=== PATIENT | male | born 1940 | race Caucasian/White ===

== ENCOUNTER 2017-03-01 13:25 | Emergency (ER) | payer OTHER, MEDICARE ==
[~2017-03-01] VITALS: Ht 185.4 cm; Wt 96.2 kg
[~2017-03-01 13:25] MED LIST: AMLODIPINE BESY10 MG PO; ASPIR-LOW81 MG PO; ATORVASTATIN CA40 MG PO; FERROUS SULFAT325 MG PO; HUMALOG100 UNIT/1 SC; LANTUS 10100 UNITS/ SC; LEVEMIR100 UNIT/2 SC; LOSARTAN POTAS100 MG PO; METFORMIN HCL1000 MG PO; METOPROLOL TAR100 MG PO; NITROSTAT0.4 MG SL; OMEPRAZOLE40 M1 PO; PRAVACHOL40 MG PO; WARFARIN SODIUM2 MG PO
[2017-03-01 14:34] LABS: HEMATOCRIT 39.7 % (38.0-50.0); MCH 26.4 PG (29.0-34.0); MCHC 32.7 G/DL (30.0-36.0); MCV 80.5 FL (86-99); PLATELET COUNT 276 K/uL (156-360); RBC DIS.WIDTH-CV 14.3 % (11.8-14.6); RBC DIS.WIDTH-SD 41.9 % (39-53); RED BLOOD COUNT 4.93 M/uL (4.00-5.50); WHITE BLOOD COUNT 6.2 K/uL (4.1-10.2)
[2017-03-01 14:41] LABS: INTER. NORMALIZED RATIO 1.2; PROTHROMBIN TIME 13.7 SEC (10.2-12.9)
[2017-03-01 14:50] LABS: PTT 36.5 SEC (25-37)
[2017-03-01 15:07] LABS: ANION GAP 9 MEQ/L (2-14); CHLORIDE 109 MEQ/L (99-109); POTASSIUM 3.9 MEQ/L (3.7-5.4); SAMPLE HEMOLYSIS CHECK 0; SAMPLE ICTERIC CHECK 0; SAMPLE LIPEMIA CHECK 0; SODIUM 142 MEQ/L (136-147)
[2017-03-01 15:12] LABS: GFR ESTIMATE (CALCULATED) > 59 mL/min/; GLUCOSE 212 mg/dL (70-99); UREA NITROGEN (BUN) 12 mg/dL (9-23)
[2017-03-01 15:13] LABS: TROP-I INTERPRETATION NEGATIVE; TROPONIN-I < 0.01 ng/mL (0.0-0.30)
[2017-03-01] MEDS ORDERED: FLEXERIL10 MG PO (15:27)
[2017-03-01 15:58] VITALS: BP 147/68
== END 2017-03-01 15:58 | disposition home or self-care (01) ==
LOC: EME 13:25
PROVIDERS: Physician Assistant
DX: R07.9 Chest pain, unspecified (principal); I10 Essential (primary) hypertension; E78.5 Hyperlipidemia, unspecified; E11.9 Type 2 diabetes mellitus without complications; I25.10 Atherosclerotic heart disease of native coronary artery without angina pectoris; Z95.5 Presence of coronary angioplasty implant and graft; Z79.01 Long term (current) use of anticoagulants; Z96.41 Presence of insulin pump (external) (internal); Z79.84 Long term (current) use of oral hypoglycemic drugs; Z87.891 Personal history of nicotine dependence
CPT/HCPCS: 71020; 80048; 84484; 85027; 85610; 85730; 93005; 99281; 99283

== ENCOUNTER 2017-07-17 22:12 | Inpatient (IN) | payer OTHER, MEDICARE ==
[~2017-07-17] VITALS: Ht 185.4 cm; Wt 96.0 kg
[~2017-07-17 22:12] MED LIST changes: +FLEXERIL10 MG PO
[2017-07-17 22:47] LABS: HEMATOCRIT 40.3 % (38.0-50.0); HEMOGLOBIN 13.4 G/DL (12.5-16.6); MCH 26.6 PG (29.0-34.0); MCHC 33.3 G/DL (30.0-36.0); MCV 80.1 FL (86-99); PLATELET COUNT 269 K/uL (156-360); RBC DIS.WIDTH-CV 15.1 % (11.8-14.6); RBC DIS.WIDTH-SD 43.6 % (39-53); RED BLOOD COUNT 5.03 M/uL (4.00-5.50); WHITE BLOOD COUNT 8.1 K/uL (4.1-10.2)
[2017-07-17 23:02] LABS: CHLORIDE 106 mEq/L (99-109); POTASSIUM 5.1 mEq/L (3.7-5.4); SODIUM 139 mEq/L (136-147)
[2017-07-17 23:04] LABS: GLUCOSE 371 mg/dL (70-99)
[2017-07-17 23:08] LABS: CREATININE 1.3 mg/dL (0.6-1.3); GFR ESTIMATE (CALCULATED) 57 mL/min/ (58.99-99999)
[2017-07-17 23:09] LABS: UREA NITROGEN (BUN) 18 mg/dL (9-23)
[2017-07-17 23:10] LABS: TROP-I INTERPRETATION NEGATIVE; TROPONIN-I < 0.01 ng/mL (0.0-0.30)
[2017-07-17 23:56] LABS: PTT 30.5 SEC (25-37)
[2017-07-18] MEDS ORDERED: METOPROLOL SUCC25 MG PO (03:09)
[2017-07-18] MEDS ORDERED: XARELTO20 MG PO (03:23)
[2017-07-18 04:03] LABS: TOTAL PROTEIN 7.4 g/dL (6.4-8.3)
[2017-07-18 04:05] LABS: TOTAL BILIRUBIN 0.4 mg/dL (0.0-1.0)
[2017-07-18 04:06] LABS: ALKALINE PHOSPHATASE 138 IU/L (3-129)
[2017-07-18 04:08] LABS: AST (GOT) 23 IU/L (2-34)
[2017-07-18 04:09] LABS: ALT (GPT) 33 IU/L (3-49); DIRECT BILIRUBIN 0.1 mg/dL (0.0-0.3)
[2017-07-18 04:10] LABS: LIPASE 30 U/L (1.0-51.0)
[2017-07-18 05:50] LABS: HEMATOCRIT 36.7 % (38.0-50.0); HEMOGLOBIN 12.5 G/DL (12.5-16.6); MCH 27.1 PG (29.0-34.0); MCHC 34.1 G/DL (30.0-36.0); MCV 79.4 FL (86-99); PLATELET COUNT 258 K/uL (156-360); RBC DIS.WIDTH-SD 43.3 % (39-53); RED BLOOD COUNT 4.62 M/uL (4.00-5.50); WHITE BLOOD COUNT 7.3 K/uL (4.1-10.2)
[2017-07-18 06:02] LABS: CHLORIDE 107 mEq/L (99-109); POTASSIUM 4.1 mEq/L (3.7-5.4); SODIUM 142 mEq/L (136-147)
[2017-07-18 06:07] LABS: GFR ESTIMATE (CALCULATED) > 59 mL/min/ (58.99-99999)
[2017-07-18 06:08] LABS: UREA NITROGEN (BUN) 15 mg/dL (9-23)
[2017-07-18 06:15] LABS: TROP-I INTERPRETATION NEGATIVE; TROPONIN-I < 0.01 ng/mL (0.0-0.30)
[2017-07-18 06:19] LABS: GLUCOSE 128 mg/dL (70-99)
[2017-07-18 07:54] VITALS: BP 173/76
[2017-07-18 11:23] LABS: TROP-I INTERPRETATION NEGATIVE; TROPONIN-I < 0.01 ng/mL (0.0-0.30)
[2017-07-18 11:36] VITALS: BP 162/74
[2017-07-18] MEDS ORDERED: LOPRESSOR25 MG PO (13:55)
[2017-07-18] MEDS ORDERED: LO-DOSE ASPIRIN81 M1 PO (13:57)
[2017-07-18] MEDS ORDERED: IMDUR30 MG PO (13:58)
[2017-07-18] MEDS ORDERED: INSULIN PUMP MC (13:58)
[2017-07-18] MEDS ORDERED: TYLENOL EXTRA500 MG PO (13:59)
[2017-07-18 15:35] VITALS: BP 170/77
[2017-07-18 20:25] VITALS: BP 117/57
[2017-07-19] VITALS (19 sets, daily range): BP systolic 102–156; BP diastolic 53–75
[2017-07-19 06:03] LABS: BASOPHIL (%) 0.3 % (0-1); EOSINOPHIL COUNT 0.1 K/uL (0-0.3); HEMATOCRIT 41.2 % (38.0-50.0); HEMOGLOBIN 13.6 G/DL (12.5-16.6); IMMATURE GRANULOCYTE (%) 0.4 % (0.0-0.7); LYMPHOCYTE (%) 30.2 % (15-42); LYMPHOCYTE COUNT 2.9 K/uL (1.0-2.8); MCH 26.5 PG (29.0-34.0); MCV 80.2 FL (86-99); MONOCYTE COUNT 0.8 K/uL (0-0.8); NEUTROPHIL (%) 60.1 % (45-76); NEUTROPHIL COUNT 5.7 K/uL (1.8-6.4); PLATELET COUNT 297 K/uL (156-360); RBC DIS.WIDTH-CV 15.1 % (11.8-14.6); RBC DIS.WIDTH-SD 43.8 % (39-53); RED BLOOD COUNT 5.14 M/uL (4.00-5.50); WHITE BLOOD COUNT 9.6 K/uL (4.1-10.2)
[2017-07-19 06:26] LABS: CHLORIDE 100 MEQ/L (99-109); CREATININE 1.2 MG/DL (0.6-1.3); GFR ESTIMATE (CALCULATED) > 59 mL/min/ (58.99-99999); GLUCOSE 257 mg/dL (70-99); POTASSIUM 4.6 MEQ/L (3.7-5.4); SODIUM 138 MEQ/L (136-147); UREA NITROGEN (BUN) 23 mg/dL (9-23)
== END 2017-07-19 22:55 | disposition short-term general hospital (02) | DRG 271 ==
LOC: EME 22:12 → 5WEST 07-18 01:29 → EDOF 07-18 01:29 → ENRESERV 07-18 01:32 → 5WEST 07-18 07:21 → 4WEST 07-19 16:49 → ENRESERV 07-19 17:02 → 4WEST 07-19 17:19
PROVIDERS: Emergency Medicine; Hospitalist; Internal Medicine; Internal Medicine Critical Care Medicine; Nurse Practitioner Adult Health
PROC: B2131ZZ Fluoroscopy of Multiple Coronary Artery Bypass Grafts using Low Osmolar Contrast (ICD-10-PCS; principal; 2017-07-19)
PROC: B2151ZZ Fluoroscopy of Left Heart using Low Osmolar Contrast (ICD-10-PCS; principal; 2017-07-19)
PROC: 5A02210 Assistance with Cardiac Output using Balloon Pump, Continuous (ICD-10-PCS; principal; 2017-07-19)
PROC: 4A023N7 Measurement of Cardiac Sampling and Pressure, Left Heart, Percutaneous Approach (ICD-10-PCS; principal; 2017-07-19)
DX: I25.110 Atherosclerotic heart disease of native coronary artery with unstable angina pectoris (principal); I25.82 Chronic total occlusion of coronary artery; I48.0 Paroxysmal atrial fibrillation; I10 Essential (primary) hypertension; E78.5 Hyperlipidemia, unspecified; K21.9 Gastro-esophageal reflux disease without esophagitis; I45.9 Conduction disorder, unspecified; E11.65 Type 2 diabetes mellitus with hyperglycemia; Z96.41 Presence of insulin pump (external) (internal); E11.319 Type 2 diabetes mellitus with unspecified diabetic retinopathy without macular edema; R94.31 Abnormal electrocardiogram [ECG] [EKG]; K29.70 Gastritis, unspecified, without bleeding; Z96.652 Presence of left artificial knee joint; Z95.5 Presence of coronary angioplasty implant and graft; Z79.899 Other long term (current) drug therapy; Z79.82 Long term (current) use of aspirin; Z87.891 Personal history of nicotine dependence; I25.2 Old myocardial infarction; Z79.01 Long term (current) use of anticoagulants; Z95.1 Presence of aortocoronary bypass graft; Z79.84 Long term (current) use of oral hypoglycemic drugs
CPT/HCPCS: 71046; 80048; 80076; 82948; 83690; 84484; 85025; 85027; 85347; 85610; 85730; 87641; 93005; 94799; 99281; 99285; C1725; C1769; C1887; C1894; G0378; J1644; J1815; J2250; J3010

== ENCOUNTER → 2017-10-27 | Outpatient (CLI) | payer OTHER, MEDICARE ==
[~2017-10-27] MED LIST changes: +IMDUR30 MG PO; +INSULIN PUMP MC; +LO-DOSE ASPIRIN81 M1 PO; +LOPRESSOR25 MG PO; +METOPROLOL SUCC25 MG PO; +TYLENOL EXTRA500 MG PO; +XARELTO20 MG PO
== END | disposition home or self-care (01) ==
LOC: NUC 06:22
DX: K31.84 Gastroparesis (principal); R19.4 Change in bowel habit; D50.8 Other iron deficiency anemias; K21.9 Gastro-esophageal reflux disease without esophagitis; Z80.0 Family history of malignant neoplasm of digestive organs
CPT/HCPCS: 78264; A9541

== ENCOUNTER 2017-12-14 11:11 | Inpatient (IN) | payer OTHER, MEDICARE ==
[2017-12-14] VITALS (18 sets, daily range): BP systolic 131–196; BP diastolic 64–100
[~2017-12-14] VITALS: Ht 185.4 cm; Wt 88.9 kg
[2017-12-14 15:08] LABS: BASOPHIL (%) 0.2 % (0-1); EOSINOPHIL (%) 0 % (0-5); HEMATOCRIT 40.4 % (38.0-50.0); HEMOGLOBIN 12.6 G/DL (12.5-16.6); IMMATURE GRANULOCYTE (%) 1.2 % (0.0-0.7); LYMPHOCYTE (%) 4.6 % (15-42); LYMPHOCYTE COUNT 0.8 K/uL (1.0-2.8); MCH 23.3 PG (29.0-34.0); MCHC 31.2 G/DL (30.0-36.0); MCV 74.8 FL (86-99); MONOCYTE (%) 6.1 % (3-12); MONOCYTE COUNT 1.1 K/uL (0-0.8); NEUTROPHIL (%) 87.9 % (45-76); PLATELET COUNT 327 K/uL (156-360); RBC DIS.WIDTH-CV 16.4 % (11.8-14.6); RBC DIS.WIDTH-SD 44.2 % (39-53); WHITE BLOOD COUNT 18.1 K/uL (4.1-10.2)
[2017-12-14 15:12] LABS: CHLORIDE 106 MEQ/L (99-109); POTASSIUM 4.1 MEQ/L (3.7-5.4); SODIUM 139 MEQ/L (136-147)
[2017-12-14 15:18] LABS: CREATININE 1.3 MG/DL (0.6-1.3); GFR ESTIMATE (CALCULATED) 57 mL/min/ (58.99-99999); GLUCOSE 365 mg/dL (70-99); PHOSPHORUS 2.4 mg/dL (2.5-4.9); PTT 20.7 SEC (25-37); UREA NITROGEN (BUN) 20 mg/dL (9-23)
[2017-12-14] MEDS ORDERED: PANTOPRAZOLE SO40 MG PO (16:11)
[2017-12-14] MEDS ORDERED: SUCRALFATE1 GM PO (16:11)
[2017-12-14] MEDS ORDERED: ONDANSETRON ODT4 MG PO (16:12)
[2017-12-14] MEDS ORDERED: METOCLOPRAMIDE H5 MG PO (16:12)
[2017-12-14] MEDS ORDERED: LOSARTAN POTASS50 MG PO (16:13)
[2017-12-14] MEDS ORDERED: METOPROLOL TART75 MG PO (16:13)
[2017-12-14] MEDS ORDERED: ATORVASTATIN CA20 MG PO (16:13)
[2017-12-14] MEDS ORDERED: CITALOPRAM HBR20 MG PO (16:13)
[2017-12-14] MEDS ORDERED: GABAPENTIN300 MG PO (16:15)
[2017-12-14] MEDS ORDERED: COLACE CLEAR50 MG PO (16:16)
[2017-12-14] MEDS ORDERED: BENADRYL ALLERG25 MG PO (16:17)
[2017-12-14 20:21] LABS: CHLORIDE 105 MEQ/L (99-109); POTASSIUM 4.3 MEQ/L (3.7-5.4); SODIUM 137 MEQ/L (136-147)
[2017-12-14 20:26] LABS: CREATININE 1.1 MG/DL (0.6-1.3); GFR ESTIMATE (CALCULATED) > 59 mL/min/ (58.99-99999); GLUCOSE 286 mg/dL (70-99); PHOSPHORUS 2.7 mg/dL (2.5-4.9); UREA NITROGEN (BUN) 19 mg/dL (9-23)
[2017-12-15] VITALS (12 sets, daily range): BP systolic 97–187; BP diastolic 50–99
[2017-12-15 01:11] LABS: CHLORIDE 108 mEq/L (99-109); SODIUM 139 mEq/L (136-147)
[2017-12-15 01:13] LABS: GLUCOSE 258 mg/dL (70-99)
[2017-12-15 01:17] LABS: CREATININE 1.1 mg/dL (0.6-1.3); GFR ESTIMATE (CALCULATED) > 59 mL/min/ (58.99-99999); PHOSPHORUS 2.6 mg/dL (2.5-4.9)
[2017-12-15 01:18] LABS: UREA NITROGEN (BUN) 19 mg/dL (9-23)
[2017-12-15 04:41] LABS: CHLORIDE 110 mEq/L (99-109); POTASSIUM 3.5 mEq/L (3.7-5.4)
[2017-12-15 04:42] LABS: ALBUMIN 3.4 g/dL (3.2-4.8); SODIUM 141 mEq/L (136-147)
[2017-12-15 04:43] LABS: HEMATOCRIT 32.2 % (38.0-50.0); HEMOGLOBIN 10.7 G/DL (12.5-16.6); MCV 72.7 FL (86-99); RED BLOOD COUNT 4.43 M/uL (4.00-5.50); WHITE BLOOD COUNT 12.8 K/uL (4.1-10.2)
[2017-12-15 04:43] LABS: CHLORIDE 111 mEq/L (99-109); POTASSIUM 3.5 mEq/L (3.7-5.4); SODIUM 143 mEq/L (136-147)
[2017-12-15 04:44] LABS: BASOPHIL (%) 0.2 % (0-1); EOSINOPHIL (%) 0.5 % (0-5); EOSINOPHIL COUNT 0.1 K/uL (0-0.3); IMMATURE GRANULOCYTE (%) 0.8 % (0.0-0.7); LYMPHOCYTE (%) 15.4 % (15-42); MCH 24.2 PG (29.0-34.0); MCHC 33.2 G/DL (30.0-36.0); MONOCYTE (%) 7.6 % (3-12); NEUTROPHIL (%) 75.5 % (45-76); NEUTROPHIL COUNT 9.6 K/uL (1.8-6.4); PLATELET COUNT 283 K/uL (156-360); RBC DIS.WIDTH-CV 16.6 % (11.8-14.6); RBC DIS.WIDTH-SD 43.3 % (39-53)
[2017-12-15 04:44] LABS: GLUCOSE 61 mg/dL (70-99); GLUCOSE 62 mg/dL (70-99)
[2017-12-15 04:47] LABS: CREATININE 0.9 mg/dL (0.6-1.3); GFR ESTIMATE (CALCULATED) > 59 mL/min/ (58.99-99999); PHOSPHORUS 2.4 mg/dL (2.5-4.9)
[2017-12-15 04:48] LABS: CREATININE 0.9 mg/dL (0.6-1.3); GFR ESTIMATE (CALCULATED) > 59 mL/min/ (58.99-99999); PHOSPHORUS 2.4 mg/dL (2.5-4.9); UREA NITROGEN (BUN) 21 mg/dL (9-23)
[2017-12-15 04:49] LABS: UREA NITROGEN (BUN) 21 mg/dL (9-23)
[2017-12-15 09:33] LABS: CHLORIDE 108 MEQ/L (99-109); CREATININE 0.9 MG/DL (0.6-1.3); GFR ESTIMATE (CALCULATED) > 59 mL/min/ (58.99-99999); PHOSPHORUS 3.1 mg/dL (2.5-4.9); POTASSIUM 3.9 MEQ/L (3.7-5.4); SODIUM 140 MEQ/L (136-147); UREA NITROGEN (BUN) 20 mg/dL (9-23)
[2017-12-15 09:56] LABS: GLUCOSE 110 mg/dL (70-99)
[2017-12-15 12:53] LABS: CHLORIDE 109 MEQ/L (99-109); GFR ESTIMATE (CALCULATED) > 59 mL/min/ (58.99-99999); GLUCOSE 139 mg/dL (70-99); PHOSPHORUS 2.5 mg/dL (2.5-4.9); POTASSIUM 4.4 MEQ/L (3.7-5.4); SODIUM 140 MEQ/L (136-147); UREA NITROGEN (BUN) 22 mg/dL (9-23)
[2017-12-16 04:06] VITALS: BP 176/82
[2017-12-16 05:52] LABS: HEMATOCRIT 33.8 % (38.0-50.0); HEMOGLOBIN 10.7 G/DL (12.5-16.6); MCH 23.4 PG (29.0-34.0); MCHC 31.7 G/DL (30.0-36.0); MCV 73.8 FL (86-99); PLATELET COUNT 266 K/uL (156-360); RED BLOOD COUNT 4.58 M/uL (4.00-5.50); WHITE BLOOD COUNT 9.6 K/uL (4.1-10.2)
[2017-12-16 07:08] VITALS: BP 181/84
[2017-12-16 11:03] VITALS: BP 156/85
[2017-12-16 14:57] VITALS: BP 181/83
[2017-12-16 15:47] VITALS: BP 154/62
[2017-12-16] MEDS ORDERED: PANTOPRAZOLE SO40 MG PO (15:52)
== END 2017-12-16 16:24 | disposition home or self-care (01) | DRG 638 ==
LOC: ENRESERV 11:11 → 4WEST 11:11 → 5SOUTH 13:43 → 4WEST 13:43 → ENRESERV 12-15 05:46 → 5SOUTH 12-15 07:04
PROVIDERS: Internal Medicine Gastroenterology; Specialist; Student in an Organized Health Care Education/Training Program
DX: E11.10 Type 2 diabetes mellitus with ketoacidosis without coma (principal); N17.9 Acute kidney failure, unspecified; E11.43 Type 2 diabetes mellitus with diabetic autonomic (poly)neuropathy; K31.84 Gastroparesis; I48.91 Unspecified atrial fibrillation; I10 Essential (primary) hypertension; E78.5 Hyperlipidemia, unspecified; I25.10 Atherosclerotic heart disease of native coronary artery without angina pectoris; K21.9 Gastro-esophageal reflux disease without esophagitis; G47.30 Sleep apnea, unspecified; K29.70 Gastritis, unspecified, without bleeding; Z96.652 Presence of left artificial knee joint; Z96.41 Presence of insulin pump (external) (internal); Z79.4 Long term (current) use of insulin; Z95.1 Presence of aortocoronary bypass graft; Z95.5 Presence of coronary angioplasty implant and graft; Z87.891 Personal history of nicotine dependence
CPT/HCPCS: 80048; 80048 91; 80069; 82948; 83036; 83605; 83735; 84100; 85025; 85027; 85610; 85730; 87641; 88305; 88312; 88342 TC; 94660; C9113; J0360; J2765; J3230; J7030; J7042; J7050